=== PATIENT | male | born 2005 | race Caucasian/White ===

== ENCOUNTER 2025-05-06 23:16 | Emergency (ER) | payer OTHER ==
[2025-05-06] MEDS ORDERED: Acetaminophen 325 MG TAB ONE (23:58)
[2025-05-07] MEDS ORDERED: Acetaminophen 325 MG TAB ONE (00:04)
== END 2025-05-07 00:39 | disposition home or self-care (01) ==
LOC: ERS 23:16
DX: S09.92XA Unspecified injury of nose, initial encounter (principal); V89.2XXA Person injured in unspecified motor-vehicle accident, traffic, initial encounter
CPT/HCPCS: 99284